=== PATIENT | male | born 1970 | race Caucasian/White ===

== ENCOUNTER 2019-11-28 13:18 | Emergency (ER) | payer SELFPAY ==
[2019-11-28] MEDS ORDERED: Ondansetron PF 4 MG/2 ML Vial ONE (14:07)
[2019-11-28] MEDS ORDERED: Morphine 4 MG/ML VIAL ONE ×2 (14:08→16:19)
[2019-11-28] MEDS ORDERED: Lidocaine 1% (PF) 30 ML VIAL ONE (15:39)
[2019-11-28] MEDS ORDERED: SODIUM CHLORIDE 0.9% IV SCH (16:00)
[2019-11-28] MEDS ORDERED: Sodium Chloride 0.9% (PF) 10 ML VIAL FS SCH (16:00)
[2019-11-28] MEDS ORDERED: PHENYLEPHRINE IV SCH (16:00)
--- NOTE | 2019-11-28 19:26 | CON ---
DATE OF CONSULTATION: 11/28/2019 Consulting is emergency room. Music Therapy Teacher is Dr. Mendez. REASON FOR CONSULTATION: Priapism. HISTORY OF PRESENT ILLNESS: Mr. Rebolledo is a 49-year-old white male with a history of prior priapism which was addressed by Dr. Bradford. The patient had previously come in for an erection that came up spontaneously and would not go away. It became painful. Dr. Bradford treated this in the standard fashion with corporal irrigation and injection with phenylephrine. When it failed to respond, he performed a Winter shunt. Subsequently, the patient did have an arterial blood gas done during this time, which came back showing that the blood was fully oxygenating indicating this was a high-flow priapism. As such, Dr. Bradford allowed the patient to be discharged with pain medication and follow up in the office to check for resolution of a high-flow priapism. Unfortunately, the priapism did not get better. The patient stated that this pain was not controlled with tramadol taken every 4 hours. The amount of bruising on the penis progressively got worse over the course of the next several days. He noticed it was more swelling and the penis became fully erect again. He presented back to the emergency room again for further evaluation, at which time I was called. He currently states that he is in a moderate amount of pain approximately 6/10. The penis is very tender. He is still able to urinate without any difficulty. He denies any hematuria. He states he really does not want any more procedures done unless he can guarantee that it will get rid of the priapism. ALLERGIES: NONE. CURRENT MEDICATIONS: Tramadol 50 mg p.o. q.4 hours p.r.n. pain. PAST MEDICAL HISTORY: 1. Depression. 2. Priapism. PAST SURGICAL HISTORY: Tonsillectomy. FAMILY HISTORY: Noncontributory. SOCIAL HISTORY: The patient denies illicit drug abuse other than some occasional mild marijuana usage. Denies tobacco abuse. Prior history of alcoholism, which he quit. REVIEW OF SYSTEMS: A 12-point review of system was reviewed with the patient and negative other than what was commented on the HPI specifically the priapism. He denies any chest pain, shortness of breath, lower extremity swelling, dizziness, syncope, fevers, or chills. Also from a genitourinary review of systems, the patient denies any history of STDs, pelvic surgeries, previous urologic surgeries, pelvic trauma, or any other potential causes of what had caused priapism. He also denies having taken any type of ED medication, trazodone, or other erectile aids. PHYSICAL EXAMINATION: VITAL SIGNS: Temperature 98.4, pulse 84, respirations 18, blood pressure 136/70, saturation 98% on room air. GENERAL: The patient appears uncomfortable, but otherwise appears stated age, communicative and alert, well nourished, well developed. HEENT: Normocephalic, atraumatic. Pupils are symmetric and round. Trachea midline. Moist mucous membranes. CARDIOVASCULAR: Regular rate and rhythm. Normal S1, S2. Symmetric pulses. CHEST: Nonlabored breathing. Symmetric expansion of lungs. Clear anteriorly. ABDOMEN: Soft, nontender, nondistended. Positive bowel sounds. No organomegaly. No rebound or guarding. GENITOURINARY: The patient is circumcised. His penis is fully erect with full erectness of the corpora. There is moderate ecchymosis with mild edema subcutaneous. There is mild ecchymosis into the scrotum. The penis is sensitive to palpation. The glans shows previous scarring on the head of the penis from where the Winter shunt was performed. EXTREMITIES: No clubbing, cyanosis, or edema. SKIN: Warm and dry. No rashes or lesions other than what was commented on the penis. The patient does have several tattoos. MUSCULOSKELETAL: No joint deformities or joint erythema noted. PSYCHIATRIC: Alert and oriented x3. Appropriate mood and affect for situation. ASSESSMENT AND PLAN: A 49-year-old white male with an apparent high-flow priapism. I did speak with Dr. Bradford, who is his primary urologist on this patient's ER visit. Dr. Bradford provided some of the history. If the patient indeed has a high-flow priapism, this is not a surgical emergency, but can cause pain and prolonged erection. This may need to be treated with penile embolization or possibly penile prosthesis placement as embolization usually result in end-stage erectile dysfunction. I did offer to give the patient another arterial blood gas to ensure that he had not converted to an ischemic priapism. The patient refused stating he did not want any more procedures done unless it would guarantee that his priapism would go away. He was also not interested in phenylephrine injection or any further corporal irrigation. As such, I think we can give the patient a little bit better pain control with hydrocodone. I also recommend he consider starting anti-inflammatory to help reduce the inflammation and edema in the penis. He needs to keep his followup with Dr. Bradford to discuss long-term management options of his high-flow priapism. If this does not resolve spontaneously over the course of a few weeks, he may need to consider either arterial embolization, which will leave him impotent or considerations for penile implant. All of this was discussed with the patient and he does understand the risk by not having a repeat evaluation with the blood gas that he may suffer permanent damage to the penis, but in any case, even if the patient has a high-flow priapism, which does not resolve, the treatments for this will usually result in severe erectile dysfunction regardless. The patient can keep followup appointment and does not need followup with me as he already has urologist with Dr. Bradford. Job ID: [id number]
== END 2019-11-28 17:40 | disposition home or self-care (01) ==
LOC: ERS 13:18
DX: N48.30 Priapism, unspecified (principal); F17.210 Nicotine dependence, cigarettes, uncomplicated
CPT/HCPCS: 96374; 96375; 96376; J2001; J2270; J2370; J2405